=== PATIENT | female | born 1990 ===

== ENCOUNTER 2019-04-22 00:14 | Emergency (ER) | payer SELFPAY ==
[2019-04-22 00:40] LABS: BASOPHILS % 0.6 % (0.0-1.5); NEUTROPHILS # 7.8 # k/uL (1.4-7.7)
[2019-04-22 00:45] LABS: eGFR (Non-African) > 60
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
[2019-04-22 04:10] VITALS: BP 102/55
== END 2019-04-22 01:10 | disposition home or self-care (01) ==
LOC: ED 00:14
DX: S00.81XA Abrasion of other part of head, initial encounter (principal); F10.129 Alcohol abuse with intoxication, unspecified; Z21 Asymptomatic human immunodeficiency virus [HIV] infection status; Z74.01 Bed confinement status; X58.XXXA Exposure to other specified factors, initial encounter; Y90.9 Presence of alcohol in blood, level not specified
CPT/HCPCS: 36415; 80053; 80320; 85025; 86703; 86803; 87340; 99282; 99283; G0480